=== PATIENT | male | born 1955 | race Caucasian/White ===

== ENCOUNTER 2021-11-18 22:34 | Emergency (ER) | payer SELFPAY ==
[~2021-11-18] VITALS: Ht 170.2 cm; Wt 75.0 kg
[2021-11-18 22:51] VITALS: BP 171/89
[2021-11-18] MEDS ORDERED: POLY15DR31 LEFTEYE (23:09)
== END 2021-11-18 22:59 | disposition home or self-care (01) ==
LOC: ER 22:34
DX: H11.32 Conjunctival hemorrhage, left eye (principal); I10 Essential (primary) hypertension; Z88.0 Allergy status to penicillin
CPT/HCPCS: 99281; 99282